=== PATIENT | female | born 1950 | race Caucasian/White ===

== ENCOUNTER 2020-06-09 06:46 | Outpatient (CLI) | payer MEDICARE, OTHER ==
[2020-06-09] MEDS ORDERED: REGADENOSON 0.4 MG/5 ML SYRINGE ONE (07:29)
== END 2020-06-09 23:59 | disposition home or self-care (01) ==
LOC: CFH 06:46
PROVIDERS: ATTEND Internal Medicine Cardiovascular Disease
DX: I08.3 Combined rheumatic disorders of mitral, aortic and tricuspid valves (principal); I11.0 Hypertensive heart disease with heart failure; I50.9 Heart failure, unspecified; E78.5 Hyperlipidemia, unspecified; Z87.891 Personal history of nicotine dependence
CPT/HCPCS: 78452; 93017; 93306; A9502; J2785